=== PATIENT | female | born 1980 | race Caucasian/White ===

== ENCOUNTER 2016-09-24 08:28 | Emergency (ER) | payer BC ==
[~2016-09-24] VITALS: Ht 162.6 cm; Wt 66.0 kg
[~2016-09-24 08:28] MED LIST: ACET500C5 PO; CIPR500T4 PO; CODE118S PO; HYDR-3498 PO; LOPE2CAP PO; PRENAT PO
[2016-09-24 08:33] VITALS: Ht 162.6 cm; Wt 66.0 kg
[2016-09-24] MEDS ORDERED: HYDROCODONE/APAP (5/325) TAB PO ONE (09:30)
--- NOTE | 2016-09-24 10:18 | ERD ---
ER Documentation Chief Complaint Date/Time DATE: 09/24/16 TIME: 10:18 Chief Complaint right sided bodyache s/p fall x 2 days ago HPI 36-year-old female who presents the emergency department today complaining of multiple areas of pain after falling a couple of days ago while carrying laundry. Patient states she has a headache, neck pain, low back pain, right arm pain. Denies any loss of consciousness, nausea or vomiting. States she is taking Tylenol for pain. ROS All systems reviewed and are negative except as per history of present illness. Medications Home Meds Active Scripts Naproxen* (Naprosyn*) 500 Mg Tablet, 500 MG PO BID Y for PAIN AND/OR INFLAMMATION, #30 TAB Prov:ANAND SON PA-C 09/24/16 Hydrocodone/Acetaminophen (Holton 5-325 Tablet) 1 Each Tablet, 1 TAB PO Q6H Y for PAIN, #15 TAB Prov:ANAND SON PA-C 09/24/16 Acetaminophen* (Tylophen*) 500 Mg Capsule, 1 CAP PO Q6H Y for PAIN AND OR ELEVATED TEMP, #20 CAP Prov:MESFIN RASHEED NP 11/14/15 Hydrocodone Bit-Acetaminophen* (Holton*) 5-325 Mg Tab, 1 TAB PO Q6 Y for PAIN, # 10 TAB Prov:JOHANNY MAGUIRE PA-C 08/09/15 Ciprofloxacin Hcl* (Ciprofloxacin Hcl*) 500 Mg Tablet, 500 MG PO BID for 10 Days , TAB Prov:JOHANNY MAGUIRE PA-C 08/09/15 Loperamide Hcl* (Imodium*) 2 Mg Capsule, 2 MG PO .AFTER EA LOOSE BM Y for DIARRHEA, #10 TAB Prov:AMADOU RESTREPO MD 04/06/15 Promethazine w/Codeine (Phenergan w/Codeine Syrup) 120 Ml Syrup, 10 ML PO Q4H Y for COUGH, #1 ML Prov:AMADOU RESTREPO MD 04/06/15 Reported Medications Multivit/Min/Fol Ac/Iron/Pren* ( S*) Unknown Strength Tab, PO DAILY, TAB 11/14/15 Allergies Allergies: Coded Allergies: No Known Drug Allergy (Verified Allergy, Unknown, 07/05/06) PMhx/Soc Medical and Surgical Hx: pt denies Medical Hx, pt denies Surgical Hx History of Surgery: No Anesthesia Reaction: No Hx Neurological Disorder: No Hx Respiratory Disorders: No Hx Cardiac Disorders: No Hx Psychiatric Problems: No Hx Miscellaneous Medical Probl: No Hx Alcohol Use: No Hx Substance Use: No Hx Tobacco Use: No Smoking Status: Never smoker Physical Exam Vitals Vital Signs Date Time Temp Pulse Resp B/P Pulse Ox O2 Delivery O2 Flow Rate FiO2 09/24/16 08:33 98.0 103 18 144/75 99 Physical Exam Const: NAD Head: Atraumatic Eyes: Normal Conjunctiva. Unable to assess pupillary reaction as patient was wearing contacts ENT: Normal External Ears, Nose and Mouth. Neck: Full range of motion..~ No meningismus. Resp: Clear to auscultation bilaterally Cardio: Regular rate and rhythm, no murmurs Abd: Soft, non tender, non distended. Normal bowel sounds Skin: Ecchymosis right forearm, right shoulder, left gluteus Back: No midline or flank tenderness Ext: No cyanosis, or edema Neur: Awake and alert. No focal neurologic deficits. No gait ataxia. Psych: Normal Mood and Affect Results 24 hrs Current Medications Medications (Trade) Dose Ordered Sig/Dillan Route PRN Reason Start Time Stop Time Status Last Admin Dose Admin Acetaminophen/ Hydrocodone Bitart (Holton (5/325)) 1 tab ONCE ONCE PO 09/24/16 09:30 09/24/16 09:31 DC 09/24/16 09:30 DIAGNOSTIC IMAGING REPORT Patient: MAURICIO REDMOND : 1980 Age: 36 Sex: F [id number] DOS: 09/24/16 0000 Ordering MD: ANAND SON PA-C Location: [facility] Room/Bed: PROCEDURE: XR cervical spine CLINICAL INDICATION: Trauma, fall TECHNIQUE: 3 standard radiographs were obtained of the cervical spine. COMPARISON: None FINDINGS: Alignment: There is straightening of the normal lordotic curvature to the cervical spine without subluxation. The atlantoaxial relationship appears normal Disk spaces: are well maintained Osseous structures : appear intact with no fracture or destructive process identified. There is moderate diffuse anterior spondylosis with calcification seen within the anterior longitudinal ligament at multiple levels. Soft tissues: are unremarkable. IMPRESSION: 1. No fracture or subluxation is evident. 2. Straightening of the normal lordotic curvature to the cervical spine. 3. Moderate diffuse anterior spondylosis with calcification seen within the anterior longitudinal ligament. Gurjit Robledo Physician Date Time Electronically viewed and signed by Physician Rhonda on 09/24/2016 10:41 RH/ CC: ANAND SON PA-C DIAGNOSTIC IMAGING REPORT Patient: MAURICIO REDMOND : 1980 Age: 36 Sex: F MR #: [id number] DOS: 09/24/16 0000 Ordering MD: ANAND SON PA-C Location: [facility] Room/Bed: PROCEDURE: CR Right Elbow CLINICAL INDICATION: Trauma, fall TECHNIQUE: AP, lateral, and an oblique radiographs were submitted. COMPARISON: None FINDINGS: Osseous Structures: The osseous elements appear well mineralized and intact. Joint Spaces: The joint spaces are well maintained. No joint effusion is evident. Soft Tissues: Appear unremarkable. IMPRESSION: Unremarkable right elbow series. Gurjit Robledo Physician Date Time Electronically viewed and signed by Physician Rhonda on 09/24/2016 10:43 RH/ CC: ANAND SON PA-C DIAGNOSTIC IMAGING REPORT Patient: MAURICIO REDMOND : 1980 Age: 36 Sex: F MR #: [id number] DOS: 09/24/16 0000 Ordering MD: ANAND SON PA-C Location: [facility]TE Room/Bed: PROCEDURE: XR Right Forearm forearm CLINICAL INDICATION: Fall, trauma TECHNIQUE: AP and lateral radiographs were submitted. COMPARISON: None FINDINGS: Osseous structures: There is a longitudinal slightly oblique fracture through the distal ulnar metaphysis without significant displacement. Joint spaces: are well maintained with no significant erosion or spurring evident. There is no significant joint effusion Soft tissues: appear unremarkable. IMPRESSION: Nondisplaced longitudinal fracture through the distal right ulna. Physician Rhonda Date Time Electronically viewed and signed by Physician Rhonda on 09/24/2016 10:43 RH/ CC: ANAND SON PA-C DIAGNOSTIC IMAGING REPORT Patient: MAURICIO REDMOND : 1980 Age: 36 Sex: F MR #: [id number] DOS: 09/24/16 0000 Ordering MD: ANAND SON PA-C Location: [facility]TE Room/Bed: PROCEDURE: XR Right Shoulder CLINICAL INDICATION: Trauma, fall TECHNIQUE: AP internal and external rotation views were submitted along with a Y-view. COMPARISON: None FINDINGS: Osseous structures: appear well mineralized and intact with no fracture or destructive process identified. Joint spaces: The glenohumeral joint appears unremarkable. The AC joint appears normal. Soft tissues: appear unremarkable. IMPRESSION: Unremarkable right shoulder. Physician Rhonda Date Time Electronically viewed and signed by Physician Rhonda on 09/24/2016 10:39 RH/ CC: ANAND SON PA-C Procedures/MDM This is a 36-year-old female who presents to the emergency department today complaining of areas of bruising and pain after falling Friday will apparently carrying her laundry. 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 Patient was complaining of a headache however she denies any loss of consciousness and no nausea or vomiting. She does not appear to have any focal neurologic deficits and I did explain the risks and benefits of obtaining a head CT scan however patient has declined at this time. Low suspicion for acute hemorrhage, mass, abscess. Patient had multiple areas of bruising and therefore did obtain images. Images of the right shoulder are unremarkable. Glenohumeral joint is unremarkable and AC joint is normal. There is no acute fracture dislocation. Images of the cervical spine show moderate diffuse anterior spondylosis with calcification however there is no acute fracture dislocation Images of the right elbow are unremarkable Images of the right forearm show a nondisplaced longitudinal fracture through the distal right ulna. Patient symptoms at this time is consistent with ulna fracture and contusions secondary to fall. Patient was placed in a splint given a sling. She was distal neurovascularly intact pre-and post splint application. Patient indicated she was a nurse on the fourth floor [employer] and was given a work note. Patient was given Holton here in the emergency department. She will be given a prescription for Holton and Naprosyn for home. At this time the patient is stable for discharge and outpatient management. Patient should follow up with their PCP in the next 1-2 days. They may return to the emergency department sooner for any persistent or worsening of symptoms. Patient understood and agreed with the plan. Departure Diagnosis: Primary Impression: Ulna fracture Encounter type: initial encounter Ulna location: distal Fracture type: closed Fracture morphology: unspecified fracture morphology Laterality: right Qualified Code: S52.601A - Closed fracture of distal end of right ulna, unspecified fracture morphology, initial encounter Additional Impression: Fall Encounter type: initial encounter Qualified Code: W19.XXXA - Fall, initial encounter Condition: Fair ANAND SON PA-C September 24, 2016 10:18
--- NOTE | 2016-09-24 10:39 | RADRPT ---
PROCEDURE: XR Right Shoulder CLINICAL INDICATION: Trauma, fall TECHNIQUE: AP internal and external rotation views were submitted along with a Y-view. COMPARISON: None FINDINGS: Osseous structures: appear well mineralized and intact with no fracture or destructive process iden tified. Joint spaces: The glenohumeral joint appears unremarkable. The AC joint appears normal. Soft tissues: appear unremarkable. IMPRESSION: Unremarkable right shoulder. Physician Rhonda Date Time Electronically viewed and signed by Gurjit Robledo Physician on 09/24/2016 10:39 /
--- NOTE | 2016-09-24 10:41 | RADRPT ---
PROCEDURE: XR cervical spine CLINICAL INDICATION: Trauma, fall TECHNIQUE: 3 standard radiographs were obtained of the cervical spine. COMPARISON: None FINDINGS: Alignment: There is straightening of the normal lordotic curvature to the cervical spine without sub luxation. The atlantoaxial relationship appears normal Disk spaces: are well maintained Osseous structures : appear intact with no fracture or destructive process identified. There is mode rate diffuse anterior spondylosis with calcification seen within the anterior longitudinal ligament at multiple levels. Soft tissues: are unremarkable. IMPRESSION: 1. No fracture or subluxation is evident. 2. Straightening of the normal lordotic curvature to the cervical spine. 3. Moderate diffuse anterior spondylosis with calcification seen within the anterior longitudinal li gament. Physician Rhonda Date Time Electronically viewed and signed by Physician Rhonda on 09/24/2016 10:41 RH/
--- NOTE | 2016-09-24 10:43 | RADRPT ---
PROCEDURE: CR Right Elbow CLINICAL INDICATION: Trauma, fall TECHNIQUE: AP, lateral, and an oblique radiographs were submitted. COMPARISON: None FINDINGS: Osseous Structures: The osseous elements appear well mineralized and intact. Joint Spaces: The joint spaces are well maintained. No joint effusion is evident. Soft Tissues: Appear unremarkable. IMPRESSION: Unremarkable right elbow series. Physician Rhonda Date Time Electronically viewed and signed by Gurjit Robledo Physician on 09/24/2016 10:43 RH/
--- NOTE | 2016-09-24 10:43 | RADRPT ---
PROCEDURE: XR Right Forearm forearm CLINICAL INDICATION: Fall, trauma TECHNIQUE: AP and lateral radiographs were submitted. COMPARISON: None FINDINGS: Osseous structures: There is a longitudinal slightly oblique fracture through the distal ulnar metap hysis without significant displacement. Joint spaces: are well maintained with no significant erosion or spurring evident. There is no sig nificant joint effusion Soft tissues: appear unremarkable. IMPRESSION: Nondisplaced longitudinal fracture through the distal right ulna. Physician Rhonda Date Time Electronically viewed and signed by Physician Rhonda on 09/24/2016 10:43 RH/
[2016-09-24] MEDS ORDERED: HYDR-906 PO (11:31)
[2016-09-24] MEDS ORDERED: NAPR-260 PO (11:31)
== END 2016-09-24 12:28 | disposition home or self-care (01) ==
LOC: EEVIPCON 08:28 → FTE 08:28
DX: S52.691A Other fracture of lower end of right ulna, initial encounter for closed fracture (principal); W18.39XA Other fall on same level, initial encounter; Y92.9 Unspecified place or not applicable
CPT/HCPCS: 72040

== ENCOUNTER 2017-10-22 01:10 | Inpatient (IN) | END 2017-10-24 15:10 | disposition home or self-care (01) | DRG 775 ==